=== PATIENT | male | born 1945 | race Caucasian/White ===

== ENCOUNTER → 2016-11-03 | Outpatient (CLI) | payer MEDICARE, OTHER ==
[~2016-11-03] MED LIST: CATAPRES0.2 MG PO; CYANOCOBALAM1000 MCG PO; FISH OIL 1,0001 EAC7 PO; FLOMAX0.4 MG PO; PROTONIX40 MG PO; VITAMIN D-32000 UNI2 PO; ZOCOR40 MG PO
== END | disposition home or self-care (01) ==
LOC: CDC 08:51
DX: R00.1 Bradycardia, unspecified (principal); N40.1 Benign prostatic hyperplasia with lower urinary tract symptoms
CPT/HCPCS: 93000

== ENCOUNTER 2016-11-10 06:30 | Inpatient (IN) | payer OTHER ==
[~2016-11-10] VITALS: Ht 190.5 cm; Wt 83.9 kg
[2016-11-10 06:57] VITALS: BP 177/86
[2016-11-10 15:39] LABS: HEMATOCRIT 31.8 % (38.0-50.0); MCV 89.1 FL (86-99)
[2016-11-10 18:00] VITALS: BP 102/60
[2016-11-10 18:52] VITALS: BP 99/56
[2016-11-10 22:51] VITALS: BP 119/68
[2016-11-11 03:34] VITALS: BP 131/60
[2016-11-11 07:57] VITALS: BP 116/62
[2016-11-11 08:20] LABS: HEMATOCRIT 28.4 % (38.0-50.0); MCH 29.3 PG (29.0-34.0); MCHC 33.1 G/DL (30.0-36.0); MCV 88.5 FL (86-99); MEAN PLAT.VOLUME 10.1 uM^3 (9.0-12.4); PLATELET COUNT 132 K/uL (156-360); RBC DIS.WIDTH-CV 12.7 % (11.8-14.6); RBC DIS.WIDTH-SD 40.8 % (39-53)
[2016-11-11] MEDS ORDERED: TYLENOL REGULA325 MG PO (08:22)
[2016-11-11] MEDS ORDERED: DOCUSATE SODIU100 MG PO (08:22)
[2016-11-11] MEDS ORDERED: PANTOPRAZOLE SO40 MG PO (08:22)
[2016-11-11 08:23] LABS: WHITE BLOOD COUNT 9.3 K/uL (4.1-10.2)
[2016-11-11 08:24] LABS: RED BLOOD COUNT 3.21 M/uL (4.00-5.50)
[2016-11-11 11:58] VITALS: BP 140/60
[2016-11-11 16:00] VITALS: BP 117/58
[2016-11-11 19:42] VITALS: BP 128/58
[2016-11-11 23:49] VITALS: BP 133/64
[2016-11-12 03:48] VITALS: BP 130/66
[2016-11-12 07:03] LABS: HEMATOCRIT 27.8 % (38.0-50.0); MCH 29.3 PG (29.0-34.0); MCHC 32.7 G/DL (30.0-36.0); MCV 89.4 FL (86-99); MEAN PLAT.VOLUME 10.9 uM^3 (9.0-12.4); PLATELET COUNT 123 K/uL (156-360); RBC DIS.WIDTH-CV 12.8 % (11.8-14.6); RBC DIS.WIDTH-SD 42.1 % (39-53); RED BLOOD COUNT 3.11 M/uL (4.00-5.50); WHITE BLOOD COUNT 8.6 K/uL (4.1-10.2)
== END 2016-11-12 10:06 | disposition home or self-care (01) | DRG 666 ==
LOC: SDC 06:30 → 2SOUTH 10:16 → 2EASTP 10:16 → SDC 10:47 → 2EASTP 17:55
PROVIDERS: Nurse Practitioner Adult Health; Urology
PROC: 0V508ZZ Destruction of Prostate, Via Natural or Artificial Opening Endoscopic (ICD-10-PCS; principal; 2016-11-10)
PROC: 0V508ZZ Destruction of Prostate, Via Natural or Artificial Opening Endoscopic (ICD-10-PCS; 2016-11-10)
DX: N13.8 Other obstructive and reflux uropathy (principal); N99.820 Postprocedural hemorrhage of a genitourinary system organ or structure following a genitourinary system procedure; N28.1 Cyst of kidney, acquired; E78.5 Hyperlipidemia, unspecified; I10 Essential (primary) hypertension; K21.9 Gastro-esophageal reflux disease without esophagitis; Z90.49 Acquired absence of other specified parts of digestive tract
CPT/HCPCS: 85014; 85018; 85027; 86900; 86901; 88305; G0378; J0131; J0330; J0690; J1100; J1170; J2250; J2405; J3010; J7050; J7120; P9045